=== PATIENT | male | born 1930 | race Caucasian/White ===

== ENCOUNTER 2016-04-27 15:01 | Observation (INO) ==
[2016-04-27] MEDS ORDERED: Ondansetron 4 MG/2 ML VIAL IVP ONE (15:09)
[2016-04-27] MEDS ORDERED: *HR* HYDROmorphone (PF) 1 MG/ML SYRINGE IVP ONE (15:09)
--- NOTE | 2016-04-27 15:14 | Emergency Department Note ---
Disposition Clinical Impression: Diverticulitis Disposition: Admitted As Inpatient General Adult HPI - General Chief complaint: ED Abdominal Pain Stated complaint: abd pain Time Seen by Provider: 04/27/16 15:05 - Related Data Home Medications Medication Instructions Recorded Confirmed Hydrocodone/Acetaminophen [Vicodin 1 each PO Q6H PRN 12/24/15 04/27/16 Es 7.5-300 mg Tablet] Cholecalciferol (D-3) [Vitamin D] 1,000 unit PO DAILY 04/27/16 04/27/16 Losartan Potassium [Cozaar] 100 mg PO DAILY 04/27/16 04/27/16 Nerve Renew 1 cap PO DAILY 04/27/16 04/27/16 Ubidecarenone [Co Q-10] 100 mg PO DAILY 04/27/16 04/27/16 Allergies Allergy/AdvReac Type Severity Reaction Status Date / Time garlic AdvReac Severe Nausea Verified 12/24/15 13:59 methotrexate AdvReac Nausea Verified 12/24/15 13:59 piroxicam [From Feldene] AdvReac Nausea Verified 12/24/15 13:59 Past Medical History - Past Medical History Medical history: Reports: hyperlipidemia, hypertension, other - Social History Smoking Status: Never smoker Smokeless Tobacco Status: No Alcohol use: Reports: none Drug use: Reports: none Course Vital Signs Temperature 99.1 F 04/27/16 15:14 Pulse Rate 61 04/27/16 15:14 Respiratory Rate 18 04/27/16 15:14 Blood Pressure 175/88 04/27/16 15:14 O2 Sat by Pulse Oximetry 96 04/27/16 15:14 Temperature 98.9 F 04/27/16 19:05 Pulse Rate 68 04/27/16 19:05 Respiratory Rate 13 04/27/16 19:05 Blood Pressure 152/70 04/27/16 19:05 O2 Sat by Pulse Oximetry 98 04/27/16 19:05 Oxygen Delivery Oxygen Delivery Room Air Medical Decision Making - Lab Data Result diagrams: 04/27/16 16:07 04/27/16 16:07 Lab Results 04/27/16 04/27/16 04/27/16 Range/Units 16:07 16:07 16:07 WBC 14.0 H (4.3-11.1) K/mcL RBC 4.62 (4.19-5.50) M/mcL Hgb 13.8 (12.9-16.9) g/dL Hct 41.7 (37.5-50.1) % MCV 90.3 (83.0-100.0) fL MCH 29.9 (28.0-33.3) pg MCHC 33.1 (31.6-35.5) g/dL RDW 13.4 (11.5-14.5) % Plt Count 163 (140-400) K/mcL MPV 12.4 (9.4-12.4) fL Immature Gran % 0.5 (0-4) % Seg Neutrophils % 77.2 % Lymphocytes % 11.1 % Monocytes % 10.5 % Eosinophils % 0.3 % Basophils % 0.4 % Neutrophils # 10.8 H (1.6-8.9) K/mcL Lymphocytes # 1.6 (0.6-4.6) K/mcL Monocytes # 1.5 H (0.0-1.3) K/mcL Eosinophils # 0.0 (0.0-0.6) K/mcL Basophils # 0.1 (0.0-0.2) K/mcL Immature Plt Fraction 13.4 H (1.1-6.1) % PT 13.7 H (9.4-12.1) Seconds INR 1.3 Sodium 136 (136-145) mEq/L Potassium 4.6 H (3.5-4.5) mEq/L Chloride 103 (98-109) mEq/L Carbon Dioxide 22 (19-29) mEq/L BUN 20 (8-26) mg/dL Creatinine 1.73 H (0.72-1.25) mg/dL Est GFR ( Amer) 46 L (> 60) Est GFR (Non-Af Amer) 38 L (> 60) BUN/Creatinine Ratio 12 (6-26) Glucose 112 H (70-99) mg/dL Calculated Osmolality 285 (280-300) Lactic Acid (0.5-2.2) mmol/L Calcium 8.7 (8.6-10.8) mg/dL Total Bilirubin 0.8 (0.2-1.2) mg/dL Direct Bilirubin 0.3 (0.0-0.5) mg/dL Indirect Bilirubin 0.5 (0.0-1.2) mg/dL AST 23 (5-34) Units/L ALT 12 (0-55) Units/L Alkaline Phosphatase 65 (38-126) Units/L Troponin I (0-0.03) ng/mL Serum Total Protein 7.4 (6.0-8.3) g/dL Albumin 3.4 L (3.5-5.0) g/dL Globulin 4.0 H (2.4-3.5) g/dL Albumin/Globulin Ratio 0.9 L (1.1-2.2) Amylase 40 (25-125) Units/L Lipase 42 (8-78) Units/L 04/27/16 04/27/16 Range/Units 16:07 16:07 WBC (4.3-11.1) K/mcL RBC (4.19-5.50) M/mcL Hgb (12.9-16.9) g/dL Hct (37.5-50.1) % MCV (83.0-100.0) fL MCH (28.0-33.3) pg MCHC (31.6-35.5) g/dL RDW (11.5-14.5) % Plt Count (140-400) K/mcL MPV (9.4-12.4) fL Immature Gran % (0-4) % Seg Neutrophils % % Lymphocytes % % Monocytes % % Eosinophils % % Basophils % % Neutrophils # (1.6-8.9) K/mcL Lymphocytes # (0.6-4.6) K/mcL Monocytes # (0.0-1.3) K/mcL Eosinophils # (0.0-0.6) K/mcL Basophils # (0.0-0.2) K/mcL Immature Plt Fraction (1.1-6.1) % PT (9.4-12.1) Seconds INR Sodium (136-145) mEq/L Potassium (3.5-4.5) mEq/L Chloride (98-109) mEq/L Carbon Dioxide (19-29) mEq/L BUN (8-26) mg/dL Creatinine (0.72-1.25) mg/dL Est GFR ( Amer) (> 60) Est GFR (Non-Af Amer) (> 60) BUN/Creatinine Ratio (6-26) Glucose (70-99) mg/dL Calculated Osmolality (280-300) Lactic Acid 1.1 (0.5-2.2) mmol/L Calcium (8.6-10.8) mg/dL Total Bilirubin (0.2-1.2) mg/dL Direct Bilirubin (0.0-0.5) mg/dL Indirect Bilirubin (0.0-1.2) mg/dL AST (5-34) Units/L ALT (0-55) Units/L Alkaline Phosphatase (38-126) Units/L Troponin I 0.01 (0-0.03) ng/mL Serum Total Protein (6.0-8.3) g/dL Albumin (3.5-5.0) g/dL Globulin (2.4-3.5) g/dL Albumin/Globulin Ratio (1.1-2.2) Amylase (25-125) Units/L Lipase (8-78) Units/L Attestation Statement - Attestation Attestation: I examined this patient and my medical decision-making was reviewed with the [employer]CHITECT/PA/Advanced Practice Nurse/Resident Physician. I agree with the documented findings, disposition and treatment plan as described except to the extent set forth below. Face to face time provided Patient sent from his primary care provider's office for generalized abdominal pain and nausea and vomiting. Plan of care and management discussed by me with the resident physician Dr. Campos. Patient retching at the time of my exam
--- NOTE | 2016-04-27 15:22 | Emergency Department Note ---
Disposition Clinical Impression: Diverticulitis Qualifiers: Diverticulitis site: large intestine Diverticulitis bleeding: without bleeding Diverticulitis complication: without perforation or abscess Qualified Code(s): K57.32 - Diverticulitis of large intestine without perforation or abscess without bleeding Disposition: Admitted As Inpatient Referrals: Buster Marquez MD [Primary Care Provider] - Forms: ED Satisfaction Letter, Work/School Release Abdominal Pain HPI - General Chief Complaint: ED Abdominal Pain Stated Complaint: abd pain Time Seen by Provider: 04/27/16 15:05 Source: patient, family Mode of arrival: ambulatory Limitations: no limitations Nursing Notes Reviewed: Yes Vital Signs Reviewed: Yes - History of Present Illness HPI Narrative: Patient here for evaluation of abdominal pain and nausea vomiting starting since Tuesday progressively worse. Patient in the restroom dry heaving. Patient states generalized abdominal pain. No blood or bile in the vomit. Upon lying the patient has tenderness that is more specific in the lower quadrants bilaterally. No previous abdominal surgeries. Not on anticoagulation. 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 Was seen by PCP and sent for further evaluation. Patient denies smoking denies alcohol denies recreational drug use. - Related Data Home Medications Medication Instructions Recorded Confirmed Hydrocodone/Acetaminophen [Vicodin 1 each PO Q6H PRN 12/24/15 04/27/16 Es 7.5-300 mg Tablet] Cholecalciferol (D-3) [Vitamin D] 1,000 unit PO DAILY 04/27/16 04/27/16 Losartan Potassium [Cozaar] 100 mg PO DAILY 04/27/16 04/27/16 Nerve Renew 1 cap PO DAILY 04/27/16 04/27/16 Ubidecarenone [Co Q-10] 100 mg PO DAILY 04/27/16 04/27/16 Allergies Allergy/AdvReac Type Severity Reaction Status Date / Time garlic AdvReac Severe Nausea Verified 12/24/15 13:59 methotrexate AdvReac Nausea Verified 12/24/15 13:59 piroxicam [From Feldene] AdvReac Nausea Verified 12/24/15 13:59 All systems ED: reviewed and negative except as stated. Constitutional: Denies: fever, chills Cardiovascular: Denies: chest pain Respiratory: Denies: cough Gastrointestinal: Reports: abdominal pain, nausea, vomiting. Denies: diarrhea, constipation Abdominal Pain PMH - Past Medical History Medical history: Reports: hyperlipidemia, hypertension, other - Social History Smoking status: Never smoker Alcohol use: Reports: none Drug use: Reports: none Physical Exam - General Limitations: no limitations - Head Head exam: atraumatic, normocephalic - Eye Eye exam: Present: normal appearance - ENT ENT exam: normal exam, normal oropharynx - Neck Neck exam: Present: normal inspection - Chest Chest inspection: Present: normal inspection - Respiratory Respiratory exam: Present: normal lung sounds bilaterally. Absent: respiratory distress, wheezes - Cardiovascular Cardiovascular exam: Present: regular rate, normal rhythm - Abdominal Exam Abdominal exam: Present: soft, tenderness Abdominal tenderness: Present: LUQ, LLQ, moderate - Extremities Exam Extremities exam: Present: normal inspection. Absent: pedal edema - Back Exam Back exam: Present: normal inspection - Neurological Exam Neurological exam: Present: alert, oriented X3 - Psychiatric Psychiatric exam: Present: normal affect, normal mood - Skin Skin exam: Present: warm, dry Course - Reevaluation(s) Reevaluation #1: Patient CT scan concerning for diverticulitis. Leukocytosis. Elevated creatinine which appears at baseline. Patient continues to have nausea and significant left lower quadrant pain. Not tolerating by mouth. Will admit to hospital for further antibiotics management. - Consultations Consultation #1: Discussed with hospitalist nurse practitioner Mari George. Patient accepted Vital Signs Temperature 99.1 F 04/27/16 15:14 Pulse Rate 61 04/27/16 15:14 Respiratory Rate 18 04/27/16 15:14 Blood Pressure 175/88 04/27/16 15:14 O2 Sat by Pulse Oximetry 96 04/27/16 15:14 Temperature 99.1 F 04/27/16 15:14 Pulse Rate 56 04/27/16 16:17 Respiratory Rate 16 04/27/16 16:17 Blood Pressure 156/74 04/27/16 16:17 O2 Sat by Pulse Oximetry 95 04/27/16 16:17 Oxygen Delivery Oxygen Delivery Room Air Abdominal Pain - Medical Records Medical records reviewed: Yes I reviewed the patient's medical records. - Lab Data Lab results reviewed: Yes I reviewed the patient's lab results. Result diagrams: 04/27/16 16:07 04/27/16 16:07 Lab Results 04/27/16 04/27/16 04/27/16 Range/Units 16:07 16:07 16:07 WBC 14.0 H (4.3-11.1) K/mcL RBC 4.62 (4.19-5.50) M/mcL Hgb 13.8 (12.9-16.9) g/dL Hct 41.7 (37.5-50.1) % MCV 90.3 (83.0-100.0) fL MCH 29.9 (28.0-33.3) pg MCHC 33.1 (31.6-35.5) g/dL RDW 13.4 (11.5-14.5) % Plt Count 163 (140-400) K/mcL MPV 12.4 (9.4-12.4) fL Immature Gran % 0.5 (0-4) % Seg Neutrophils % 77.2 % Lymphocytes % 11.1 % Monocytes % 10.5 % Eosinophils % 0.3 % Basophils % 0.4 % Neutrophils # 10.8 H (1.6-8.9) K/mcL Lymphocytes # 1.6 (0.6-4.6) K/mcL Monocytes # 1.5 H (0.0-1.3) K/mcL Eosinophils # 0.0 (0.0-0.6) K/mcL Basophils # 0.1 (0.0-0.2) K/mcL Immature Plt Fraction 13.4 H (1.1-6.1) % PT 13.7 H (9.4-12.1) Seconds INR 1.3 Sodium 136 (136-145) mEq/L Potassium 4.6 H (3.5-4.5) mEq/L Chloride 103 (98-109) mEq/L Carbon Dioxide 22 (19-29) mEq/L BUN 20 (8-26) mg/dL Creatinine 1.73 H (0.72-1.25) mg/dL Est GFR ( Amer) 46 L (> 60) Est GFR (Non-Af Amer) 38 L (> 60) BUN/Creatinine Ratio 12 (6-26) Glucose 112 H (70-99) mg/dL Calculated Osmolality 285 (280-300) Lactic Acid (0.5-2.2) mmol/L Calcium 8.7 (8.6-10.8) mg/dL Total Bilirubin 0.8 (0.2-1.2) mg/dL Direct Bilirubin 0.3 (0.0-0.5) mg/dL Indirect Bilirubin 0.5 (0.0-1.2) mg/dL AST 23 (5-34) Units/L ALT 12 (0-55) Units/L Alkaline Phosphatase 65 (38-126) Units/L Troponin I (0-0.03) ng/mL Serum Total Protein 7.4 (6.0-8.3) g/dL Albumin 3.4 L (3.5-5.0) g/dL Globulin 4.0 H (2.4-3.5) g/dL Albumin/Globulin Ratio 0.9 L (1.1-2.2) Amylase 40 (25-125) Units/L Lipase 42 (8-78) Units/L 04/27/16 04/27/16 Range/Units 16:07 16:07 WBC (4.3-11.1) K/mcL RBC (4.19-5.50) M/mcL Hgb (12.9-16.9) g/dL Hct (37.5-50.1) % MCV (83.0-100.0) fL MCH (28.0-33.3) pg MCHC (31.6-35.5) g/dL RDW (11.5-14.5) % Plt Count (140-400) K/mcL MPV (9.4-12.4) fL Immature Gran % (0-4) % Seg Neutrophils % % Lymphocytes % % Monocytes % % Eosinophils % % Basophils % % Neutrophils # (1.6-8.9) K/mcL Lymphocytes # (0.6-4.6) K/mcL Monocytes # (0.0-1.3) K/mcL Eosinophils # (0.0-0.6) K/mcL Basophils # (0.0-0.2) K/mcL Immature Plt Fraction (1.1-6.1) % PT (9.4-12.1) Seconds INR Sodium (136-145) mEq/L Potassium (3.5-4.5) mEq/L Chloride (98-109) mEq/L Carbon Dioxide (19-29) mEq/L BUN (8-26) mg/dL Creatinine (0.72-1.25) mg/dL Est GFR ( Amer) (> 60) Est GFR (Non-Af Amer) (> 60) BUN/Creatinine Ratio (6-26) Glucose (70-99) mg/dL Calculated Osmolality (280-300) Lactic Acid 1.1 (0.5-2.2) mmol/L Calcium (8.6-10.8) mg/dL Total Bilirubin (0.2-1.2) mg/dL Direct Bilirubin (0.0-0.5) mg/dL Indirect Bilirubin (0.0-1.2) mg/dL AST (5-34) Units/L ALT (0-55) Units/L Alkaline Phosphatase (38-126) Units/L Troponin I 0.01 (0-0.03) ng/mL Serum Total Protein (6.0-8.3) g/dL Albumin (3.5-5.0) g/dL Globulin (2.4-3.5) g/dL Albumin/Globulin Ratio (1.1-2.2) Amylase (25-125) Units/L Lipase (8-78) Units/L - Radiology Data Radiology results reviewed: Yes I reviewed the patient's radiology results. - EKG Data EKG attestation: Yes I reviewed and interpreted this EKG. EKG results narrative: Patient has EKG showing ventricular rate of 61 bpm. Patient has P waves that are obvious on prior stem QRS complexes however not present during other QRS complexes. Obvious atrial fibrillation. Possible sinus bradycardia with topic beats versus atrial fibrillation.
[2016-04-27 16:15] LABS: Basophils # 0.1 K/mcL (0.0-0.2); Basophils % 0.4 %; Eosinophils % 0.3 %; Hematocrit 41.7 % (37.5-50.1); Hemoglobin 13.8 g/dL (12.9-16.9); Immature Granulocytes % 0.5 % (0-4); Immature Platelets 13.4 % (1.1-6.1); Lymphocytes # 1.6 K/mcL (0.6-4.6); Lymphocytes % 11.1 %; Mean Corpuscular HGB Conc 33.1 g/dL (31.6-35.5); Mean Corpuscular Hemoglobin 29.9 pg (28.0-33.3); Mean Corpuscular Volume 90.3 fL (83.0-100.0); Mean Platelet Volume 12.4 fL (9.4-12.4); Monocytes # 1.5 K/mcL (0.0-1.3); Monocytes % 10.5 %; Neutrophils # 10.8 K/mcL (1.6-8.9); Platelet Count 163 K/mcL (140-400); Red Blood Count 4.62 M/mcL (4.19-5.50); Red Cell Distribution Width 13.4 % (11.5-14.5); Segmented Neutrophils % 77.2 %
[2016-04-27 16:28] LABS: INR 1.3; Prothrombin Time 13.7 Seconds (9.4-12.1)
[2016-04-27 16:29] LABS: Albumin 3.4 g/dL (3.5-5.0); Albumin/Globulin Ratio 0.9 (1.1-2.2); Bilirubin,Direct 0.3 mg/dL (0.0-0.5); Bilirubin,Indirect 0.5 mg/dL (0.0-1.2); Bilirubin,Total 0.8 mg/dL (0.2-1.2); Calcium 8.7 mg/dL (8.6-10.8); Total Protein 7.4 g/dL (6.0-8.3)
[2016-04-27 16:31] LABS: Potassium 4.6 mEq/L (3.5-4.5)
[2016-04-27] MEDS ORDERED: MetroNIDAZOLE 500 MG/100 ML 500 MG/100 ML BAG IVPB ONE (16:33)
[2016-04-27] MEDS ORDERED: *HR* Morphine 2 MG/ML SYRINGE IVP PRN (18:47)
[2016-04-27] MEDS ORDERED: Naloxone 0.4 MG/ML INJ IVP PRN (18:47)
[2016-04-27] MEDS ORDERED: Ondansetron 4 MG/2 ML VIAL IVP PRN (18:47)
--- NOTE | 2016-04-27 19:05 | Internal Med History&Physical ---
Date of Encounter: 04/27/16 Time of Encounter: 18:55 Assessment and Plan (1) Diverticulitis Current visit: Yes Status: Acute Patient presented with Abdominal pain, nausea and vomiting. Diverticulitis seen on abdominal CT NPO Flagyl IVPB Cipro IVPB PRN zofran for nausea and PRN morphine for abdominal pain Advance diet to low-residue diet as tolerated. Qualifiers: Diverticulitis site: large intestine Diverticulitis bleeding: without bleeding Diverticulitis complication: without perforation or abscess Qualified Code(s): K57.32 - Diverticulitis of large intestine without perforation or abscess without bleeding (2) Abdominal pain Current visit: Yes Status: Acute Patient with diverticulitis seen on Abd CT NPO PRN Morphine for abdominal pain Qualifiers: Abdominal location: left lower quadrant Qualified Code(s): R10.32 - Left lower quadrant pain (3) Nausea & vomiting Current visit: Yes Status: Acute Patient with Diverticulitis seen on CT NPO PRN Zofran for nausea Qualifiers: Vomiting type: unspecified Vomiting Intractability: non-intractable Qualified Code(s): R11.2 - Nausea with vomiting, unspecified (4) Hypertension Current visit: Yes Status: Acute Hold PO dose of losartan. PRN hydralazine IVP for SBP >160 and DBP > 100 Qualifiers: Hypertension type: essential hypertension Qualified Code(s): I10 - Essential (primary) hypertension (5) DVT prophylaxis Current visit: Yes Status: Acute Encourage ambulation anti-embolic stockings Heparin 5,000u TID Internal Medicine - H&P: HPI Chief complaint: abdominal pain Admitted From: Emergency Dept Plans for Post Hospital Care: Home History of present illness: Mr. Rhoades is a 85 year old male with hypertension, CKD 3, PVD s/p BLE vascular surgery, TIAs, carotid endarterectomy, invasive SCC s/p left ear removal, chemo and radiation, who presented to the ED today with complaints of abdominal pain, nausea and vomiting. Patient reports his abdominal pain started on Tuesday, and has been worsening. It is located primarily in the left lower quadrant but radiates throughout the abdomen. He describes it as severe, sharp, and tender. It was relieved by the dilaudid given in by the ED. Patient reports he has not been able to eat much since the onset of pain on Tuesday, and has grown progressively weaker. He denies any chest pain, palpitations, shortness of breath, headache. He denies any fever, chills, sweats, or diarrhea. He reports he has not had a bowel movement since Tuesday either. Evaluation in the ED revealed an elevated WBC count of 14.0, negative troponin of 0.01, lactate of 1.1. His creatinine is elevated to 1.73, but consistent with his baseline and diagnosis of CKD stage 3. CT of his abdomen showed acute diverticulitis in the sigmoid colon, and no fluid or abscess. He was started on Flagyl and Cipro , and was given zofran for nausea and dilaudid for pain. On exam, patient reports he is feeling much better. He is alert and oriented, in no distress. Heart has irregular rhythm, lungs are clear bilaterally. Abdomen has hypoactive bowel sounds and is mildly diffusely tender. 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, chemo and radiation), hyperlipidemia, hypertension, peripheral artery disease, renal disease (CKD 3), TIA, other - Past Surgical History Surgical History: cancer surgery, hip replacement (right), knee replacement ( bilateral), orthopedic, other (ankle fusion, back surgery), vascular surgery ( BLE and right carotid endarterectomy) - Social History Smoking Status: Never smoker Smokeless Tobacco Status: No Alcohol use: none Drug use: none - Family History Mother Living Status: Age at : 91 Cause of : CVA Father Living Status: Cause of : meningitis Internal Medicine - H&P: Meds Hydrocodone/Acetaminophen [Vicodin Es 7.5-300 mg Tablet] 1 each PO Q6H PRN 12/23 [History] Cholecalciferol (D-3) [Vitamin D] 1,000 unit PO DAILY 04/27/16 [History] Losartan Potassium [Cozaar] 100 mg PO DAILY 04/27/16 [History] Nerve Renew 1 cap PO DAILY 04/27/16 [History] Ubidecarenone [Co Q-10] 100 mg PO DAILY 04/27/16 [History] Allergies garlic Adverse Reaction (Severe, Verified 12/24/15 13:59) Nausea methotrexate Adverse Reaction (Verified 12/24/15 13:59) Nausea piroxicam [From Feldene] Adverse Reaction (Verified 12/24/15 13:59) Nausea All Systems PM: A 10-system review of systems was performed and is negative for pertinent findings except as documented above in the HPI. - Constitutional Constitutional: no chills, no fever(s), no night sweats - EENT Eyes: no change in vision, no discharge, no pain, no photophobia Ears: no ear discharge, no ear pain, no tinnitus Nose, mouth and throat: no dysphagia, no nasal discharge, no neck pain, no sore throat - Cardiovascular Cardiovascular ROS IM: no chest pain, no diaphoresis, no dyspnea, no lightheadedness, no palpitations, no syncope - Respiratory Respiratory: no cough, no dyspnea, no wheezing, no excessive phlegm production - Gastrointestinal Gastrointestinal: abdominal pain, nausea, vomiting, no diarrhea, no hematemesis , no hematochezia, no melena - Musculoskeletal Musculoskeletal ROS IM: no numbness, no tingling - Integumentary Integumentary IM: no rash, no unusual bruising - Neurological Neurological ROS: no confusion, no convulsions, no focal weakness, no numbness, no tingling, no tremor(s) - Hematologic/Lymphatic Hematologic/Lymphatic: no easy bruising - Constitutional Vitals: Temp Pulse Resp BP Pulse Ox 99.1 F 56 16 147/71 95 04/27/16 15:14 04/27/16 16:17 04/27/16 17:48 04/27/16 17:48 04/27/16 16:17 General appearance: Present: A&O X 3, pleasant, no acute distress - Head Head exam: Present: atraumatic, normocephalic - Eye Eye exam: Present: PERRL, conjuntiva pink, sclera anicteric Pupils: Present: PERRL - ENT Additional comments: 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 Absent: lymphadenopathy - Respiratory Respiratory exam: Present: CTAB. Absent: accessory muscle use, rales, rhonchi, wheezes - Cardiovascular Cardiovascular exam: Present: RRR, +S1, +S2. Absent: diastolic murmur, gallop, rubs, systolic murmur - GI/Abdominal GI/Abdominal exam: Present: hypoactive bowel sounds, soft, tenderness, no peritoneal signs. Absent: distended - Extremities Exam Extremities exam: Present: warm, radial pulses palpable and symetrical. Absent : calf tenderness, cyanotic, pedal edema - Neurological Exam Neurological exam: Present: CN II-XII intact, oriented X3, no focal deficits. Absent: facial droop, speech deficit - Skin Skin exam: Present: dry, intact Internal Med - H&P Results - Labs CBC & Chem 7: 04/27/16 16:07 04/27/16 16:07 Labs: All Lab Results (24 Hours) 04/27/16 04/27/16 04/27/16 Range/Units 16:07 16:07 16:07 WBC 14.0 H (4.3-11.1) K/mcL RBC 4.62 (4.19-5.50) M/mcL Hgb 13.8 (12.9-16.9) g/dL Hct 41.7 (37.5-50.1) % MCV 90.3 (83.0-100.0) fL MCH 29.9 (28.0-33.3) pg MCHC 33.1 (31.6-35.5) g/dL RDW 13.4 (11.5-14.5) % Plt Count 163 (140-400) K/mcL MPV 12.4 (9.4-12.4) fL Immature Gran % 0.5 (0-4) % Seg Neutrophils % 77.2 % Lymphocytes % 11.1 % Monocytes % 10.5 % Eosinophils % 0.3 % Basophils % 0.4 % Neutrophils # 10.8 H (1.6-8.9) K/mcL Lymphocytes # 1.6 (0.6-4.6) K/mcL Monocytes # 1.5 H (0.0-1.3) K/mcL Eosinophils # 0.0 (0.0-0.6) K/mcL Basophils # 0.1 (0.0-0.2) K/mcL Immature Plt Fraction 13.4 H (1.1-6.1) % PT 13.7 H (9.4-12.1) Seconds INR 1.3 Sodium 136 (136-145) mEq/L Potassium 4.6 H (3.5-4.5) mEq/L Chloride 103 (98-109) mEq/L Carbon Dioxide 22 (19-29) mEq/L BUN 20 (8-26) mg/dL Creatinine 1.73 H (0.72-1.25) mg/dL Est GFR ( Amer) 46 L (> 60) Est GFR (Non-Af Amer) 38 L (> 60) BUN/Creatinine Ratio 12 (6-26) Glucose 112 H (70-99) mg/dL Calculated Osmolality 285 (280-300) Lactic Acid (0.5-2.2) mmol/L Calcium 8.7 (8.6-10.8) mg/dL Total Bilirubin 0.8 (0.2-1.2) mg/dL Direct Bilirubin 0.3 (0.0-0.5) mg/dL Indirect Bilirubin 0.5 (0.0-1.2) mg/dL AST 23 (5-34) Units/L ALT 12 (0-55) Units/L Alkaline Phosphatase 65 (38-126) Units/L Troponin I (0-0.03) ng/mL Serum Total Protein 7.4 (6.0-8.3) g/dL Albumin 3.4 L (3.5-5.0) g/dL Globulin 4.0 H (2.4-3.5) g/dL Albumin/Globulin Ratio 0.9 L (1.1-2.2) Amylase 40 (25-125) Units/L Lipase 42 (8-78) Units/L 04/27/16 04/27/16 Range/Units 16:07 16:07 WBC (4.3-11.1) K/mcL RBC (4.19-5.50) M/mcL Hgb (12.9-16.9) g/dL Hct (37.5-50.1) % MCV (83.0-100.0) fL MCH (28.0-33.3) pg MCHC (31.6-35.5) g/dL RDW (11.5-14.5) % Plt Count (140-400) K/mcL MPV (9.4-12.4) fL Immature Gran % (0-4) % Seg Neutrophils % % Lymphocytes % % Monocytes % % Eosinophils % % Basophils % % Neutrophils # (1.6-8.9) K/mcL Lymphocytes # (0.6-4.6) K/mcL Monocytes # (0.0-1.3) K/mcL Eosinophils # (0.0-0.6) K/mcL Basophils # (0.0-0.2) K/mcL Immature Plt Fraction (1.1-6.1) % PT (9.4-12.1) Seconds INR Sodium (136-145) mEq/L Potassium (3.5-4.5) mEq/L Chloride (98-109) mEq/L Carbon Dioxide (19-29) mEq/L BUN (8-26) mg/dL Creatinine (0.72-1.25) mg/dL Est GFR ( Amer) (> 60) Est GFR (Non-Af Amer) (> 60) BUN/Creatinine Ratio (6-26) Glucose (70-99) mg/dL Calculated Osmolality (280-300) Lactic Acid 1.1 (0.5-2.2) mmol/L Calcium (8.6-10.8) mg/dL Total Bilirubin (0.2-1.2) mg/dL Direct Bilirubin (0.0-0.5) mg/dL Indirect Bilirubin (0.0-1.2) mg/dL AST (5-34) Units/L ALT (0-55) Units/L Alkaline Phosphatase (38-126) Units/L Troponin I 0.01 (0-0.03) ng/mL Serum Total Protein (6.0-8.3) g/dL Albumin (3.5-5.0) g/dL Globulin (2.4-3.5) g/dL Albumin/Globulin Ratio (1.1-2.2) Amylase (25-125) Units/L Lipase (8-78) Units/L
[2016-04-27] MEDS: 0.9 % Sodium Chloride 1,000 ML IVC SCH (23:13)
[2016-04-27] MEDS: *HR* Heparin 5,000 UNIT/ML VIAL SQ SCH (23:14)
[2016-04-27] MEDS: MetroNIDAZOLE 500 MG/100 ML 500 MG/100 ML BAG IVPB SCH (23:14)
--- NOTE | 2016-04-28 00:04 | Event Note ---
Date of Encounter: 04/28/16 Time of Encounter: 00:02 Patient seen and examined with nurse practitioner. 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 scan shows uncomplicated acute diverticulitis. Patient will be kept NPO hydrated. Patient started on ciprofloxacin Flagyl. Expected hospital stay 2 days for IV antibiotics. Patient is do not resuscitate.
[2016-04-28 05:31] LABS: Basophils # 0.1 K/mcL (0.0-0.2); Basophils % 0.6 %; Eosinophils # 0.1 K/mcL (0.0-0.6); Eosinophils % 1.2 %; Hematocrit 38.5 % (37.5-50.1); Hemoglobin 12.4 g/dL (12.9-16.9); Immature Granulocytes % 0.3 % (0-4); Lymphocytes # 1.6 K/mcL (0.6-4.6); Lymphocytes % 17.7 %; Mean Corpuscular HGB Conc 32.2 g/dL (31.6-35.5); Mean Corpuscular Hemoglobin 29.6 pg (28.0-33.3); Mean Corpuscular Volume 91.9 fL (83.0-100.0); Mean Platelet Volume 12.9 fL (9.4-12.4); Monocytes # 1.1 K/mcL (0.0-1.3); Monocytes % 11.9 %; Neutrophils # 6.1 K/mcL (1.6-8.9); Platelet Count 154 K/mcL (140-400); Red Blood Count 4.19 M/mcL (4.19-5.50); Red Cell Distribution Width 13.6 % (11.5-14.5); Segmented Neutrophils % 68.3 %
[2016-04-28 05:55] LABS: Calcium 8.3 mg/dL (8.6-10.8); Potassium 4.1 mEq/L (3.5-4.5)
[2016-04-28] MEDS: *HR* Heparin 5,000 UNIT/ML VIAL SQ SCH ×3 (07:15→21:57)
[2016-04-28] MEDS: MetroNIDAZOLE 500 MG/100 ML 500 MG/100 ML BAG IVPB SCH ×3 (08:03→23:23)
[2016-04-28] MEDS: 0.9 % Sodium Chloride 1,000 ML IVC SCH ×2 (11:33→11:34)
--- NOTE | 2016-04-28 13:15 | Internal Med Progress Note ---
Date of Encounter: 04/28/16 Time of Encounter: 13:14 - Assessment and plan (1) Abdominal pain Current Visit: Yes Status: Acute Assessment and plan: Secondary to acute diverticulitis. Improved today. We will start clear liquid diet and advance as tolerated. Qualifiers: Abdominal location: left lower quadrant Qualified Code(s): R10.32 - Left lower quadrant pain (2) DVT prophylaxis Current Visit: Yes Status: Acute (3) Diverticulitis Current Visit: Yes Status: Acute Assessment and plan: CT abdomen showed acute diverticulitis. No history of diverticulitis in the past. CT does not reveal any abscess or perforation. We will continue IV antibiotics for today. Gradually the diet as tolerated. We will need follow-up with GI as outpatient for possible colonoscopy Qualifiers: Diverticulitis site: large intestine Diverticulitis bleeding: without bleeding Diverticulitis complication: without perforation or abscess Qualified Code(s): K57.32 - Diverticulitis of large intestine without perforation or abscess without bleeding (4) Hypertension Current Visit: Yes Status: Acute Assessment and plan: Continue home medications. 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 - Time Spent With Patient 25 - 35 minutes - Subjective Interval history: Patient seen at the bedside, admitted for acute diverticulitis. Reports feeling much better, abdominal pain has improved. Denies any nausea or vomiting. 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 Absent: lymphadenopathy - Respiratory Respiratory exam: Present: CTAB. Absent: accessory muscle use, rales, rhonchi, wheezes - Cardiovascular Cardiovascular exam: Present: RRR, +S1, +S2. Absent: diastolic murmur, gallop, rubs, systolic murmur - GI/Abdominal GI/Abdominal exam: Present: non tender, soft, non distended, bs are present Absent: distended - Extremities Exam Extremities exam: Present: warm, radial pulses palpable and symetrical. Absent : calf tenderness, cyanotic, pedal edema - Neurological Exam Neurological exam: Present: CN II-XII intact, oriented X3, no focal deficits. Absent: facial droop, speech deficit - Skin Skin exam: Present: dry, intact Internal Medicine: Result - Labs CBC & Chem 7: 04/28/16 04:32 04/28/16 04:32 - ABG Interpretation ABG results: PT/INR, D-dimer PT 13.7 Seconds (9.4-12.1) H 04/27/16 16:07 - VTE Documentation of Mechanical Device: Graduated compression elastic hosiery Consult Discharge Plan - Plan Referrals: Buster Marquez MD [Primary Care Provider] - 05/10/16 10:00 am
[2016-04-29] MEDS: 0.9 % Sodium Chloride 1,000 ML IVC SCH (05:16)
[2016-04-29] MEDS: *HR* Heparin 5,000 UNIT/ML VIAL SQ SCH (05:17)
[2016-04-29] MEDS: MetroNIDAZOLE 500 MG/100 ML 500 MG/100 ML BAG IVPB SCH (07:20)
[2016-04-29 07:51] VITALS: BP 150/59
--- NOTE | 2016-04-29 08:54 | Electrocardiograph Report ---
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
--- NOTE | 2016-04-29 10:27 | Discharge Summary ---
Date of Encounter: 04/29/16 Time of Encounter: 10:25 - Discharge Diagnosis (1) Abdominal pain Priority: Primary Status: Acute Qualifiers: Abdominal location: left lower quadrant Qualified Code(s): R10.32 - Left lower quadrant pain (2) DVT prophylaxis Priority: Secondary Status: Acute (3) Diverticulitis Priority: Primary Status: Acute Qualifiers: Diverticulitis site: large intestine Diverticulitis bleeding: without bleeding Diverticulitis complication: without perforation or abscess Qualified Code(s): K57.32 - Diverticulitis of large intestine without perforation or abscess without bleeding (4) Hypertension Priority: Secondary Status: Acute Qualifiers: Hypertension type: essential hypertension Qualified Code(s): I10 - Essential (primary) hypertension (5) Head and neck cancer Priority: Secondary Status: Chronic - Discharge Medications Prescriptions: Ciprofloxacin [Cipro] 500 mg PO BID #10 tablet MetroNIDAZOLE [Flagyl] 500 mg PO TID #15 tablet Home Medications: Hydrocodone/Acetaminophen [Vicodin Es 7.5-300 mg Tablet] 1 each PO Q6H PRN 12/23 [History] Cholecalciferol (D-3) [Vitamin D] 1,000 unit PO DAILY 04/27/16 [History] Losartan Potassium [Cozaar] 100 mg PO DAILY 04/27/16 [History] Nerve Renew 1 cap PO DAILY 04/27/16 [History] Ubidecarenone [Co Q-10] 100 mg PO DAILY 04/27/16 [History] Ciprofloxacin [Cipro] 500 mg PO BID #10 tablet 04/29/16 [Rx] MetroNIDAZOLE [Flagyl] 500 mg PO TID #15 tablet 04/29/16 [Rx] Allergies/Adverse Reactions: Allergies garlic Adverse Reaction (Severe, Verified 12/24/15 13:59) Nausea methotrexate Adverse Reaction (Verified 12/24/15 13:59) Nausea piroxicam [From Feldene] Adverse Reaction (Verified 12/24/15 13:59) Nausea Date of admission: 04/27/16 17:01 Primary care physician: Buster Marquez MD Discharging clinician: Rishi Vivas Anticipated date of discharge: 04/29/16 - Patient Status Disposition: Home, Self-Care Condition: Good Functional capacity at discharge: independent ambulation Overall status at discharge: patient is back to baseline - Discharge Instructions Follow Up With: Buster Marquez MD [Primary Care Provider] - 05/10/16 10:00 am Armando Beasley MD [Partnered Physician] - (The Gi office will call patient at home with date and time of appt. Thank you) - Diet and Activity Activity: resume usual activities as tolerated Diet: other (soft diet for 4-5 days , advance to regular as tolerated.) Interval History: Mr. Rhoades is a 85 year old male with hypertension, CKD 3, PVD s/p BLE vascular surgery, TIAs, carotid endarterectomy, invasive SCC s/p left ear removal, chemo and radiation, who presented to the ED today with complaints of abdominal pain, nausea and vomiting. Patient reports his abdominal pain started on Tuesday, and has been worsening. Evaluation in the ED revealed an elevated WBC count of 14.0, negative troponin of 0.01, lactate of 1.1. His creatinine is elevated to 1.73, but consistent with his baseline and diagnosis of CKD stage 3. CT of his abdomen showed acute diverticulitis in the sigmoid colon, and no fluid or abscess. He was started on Flagyl and Cipro, and was given zofran for nausea and dilaudid for pain. he was admitted for conservative management he was treated with IVF, anti emetics and analgesics. he was kept NPO and diet was advanced gradually. EH improved clinically on IV antibiotics and e was able to tolerate oral diet without worsening abdominal pain , n/v he is being dc in stable condition. Hospital course: Mr. Rhoades is a 85 year old male Time spent discussing smoking cessation with patient: more than 10 minutes - Time Spent with Patient Total time spent providing and/or coordinating discharge services: Greater than 30 minutes - Constitutional Vitals: Temp Pulse Resp BP Pulse Ox 97.6 F 67 17 150/59 95 04/29/16 07:50 04/29/16 07:50 04/29/16 07:50 04/29/16 07:50 04/29/16 07:50 General appearance: Present: A&O X 3, pleasant, no acute distress Exam: - Head Head exam: Present: atraumatic, normocephalic - Eye Eye exam: Present: PERRL, conjuntiva pink, sclera anicteric Pupils: Present: PERRL - ENT Additional comments: 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 Absent: lymphadenopathy - Respiratory Respiratory exam: Present: CTAB. Absent: accessory muscle use, rales, rhonchi, wheezes - Cardiovascular Cardiovascular exam: Present: RRR, +S1, +S2. Absent: diastolic murmur, gallop, rubs, systolic murmur - GI/Abdominal GI/Abdominal exam: Present: non tender, soft, non distended, bs are present Absent: distended - Extremities Exam Extremities exam: Present: warm, radial pulses palpable and symetrical. Absent : calf tenderness, cyanotic, pedal edema - Neurological Exam Neurological exam: Present: CN II-XII intact, oriented X3, no focal deficits. Absent: facial droop, speech deficit - Skin Skin exam: Present: dry, intact - VTE Documentation of Mechanical Device: Graduated compression elastic hosiery
== END 2016-04-29 12:02 | disposition home or self-care (01) ==
LOC: 3ANU 15:01 → EMEROO 15:01 → SUATTDRO 17:01 → 3ANU 18:50
PROVIDERS: ADMIT Nurse Practitioner Family; ATTEND Internal Medicine Endocrinology, Diabetes & Metabolism